=== PATIENT | male | born 1945 | race Caucasian/White ===

== ENCOUNTER 2020-10-22 09:28 | Emergency (ER) | payer OTHER ==
[2020-10-22 09:55] LABS: HEMOGLOBIN 10.6 gm/dl (14.0-17.5); RED BLOOD COUNT 3.1 M/UL (4.20-5.50); WHITE BLOOD COUNT 3.2 K/UL (4.5-11.0)
[2020-10-22 10:21] LABS: BUN/CREATININE RATIO 15 (0-10)
== END 2020-10-22 13:35 | disposition other institution (70) ==
LOC: ER1 09:28
PROVIDERS: Physician Assistant
DX: I61.9 Nontraumatic intracerebral hemorrhage, unspecified (principal); I10 Essential (primary) hypertension; Z20.822 Contact with and (suspected) exposure to COVID-19; Z90.49 Acquired absence of other specified parts of digestive tract; Z79.899 Other long term (current) drug therapy
CPT/HCPCS: 36430; 70450; 70496; 71045; 80053; 82550; 82553; 83874; 84484; 85025; 85610; 86900; 86901; 93005; 96374; 96375; 99285; J2405; J7050; P9035; Q9967; U0002

== ENCOUNTER → 2020-12-08 | Outpatient (CLI) | payer OTHER | LOC: EMI 09:23 | DX: F43.23 Adjustment disorder with mixed anxiety and depressed mood (principal); K74.60 Unspecified cirrhosis of liver; R41.89 Other symptoms and signs involving cognitive functions and awareness; F03.90 Unspecified dementia, unspecified severity, without behavioral disturbance, psychotic disturbance, mood disturbance, and anxiety; R41.3 Other amnesia; G31.9 Degenerative disease of nervous system, unspecified | CPT/HCPCS: 70551 ==

== ENCOUNTER 2021-10-23 16:10 | Inpatient (IN) | payer OTHER ==
[~2021-10-23] VITALS: Ht 167.6 cm; Wt 79.4 kg
[2021-10-23 17:50] LABS: HEMOGLOBIN 8.5 gm/dl (14.0-17.5); RED BLOOD COUNT 2.54 M/UL (4.20-5.50); WHITE BLOOD COUNT 3.9 K/UL (4.5-11.0)
--- NOTE | 2021-10-23 17:51 | NUR ---
patient on heparin rate of 9.6 upon arrival from [facility].
[2021-10-23] MEDS ORDERED: ALLOPURINOL100 MG PO (18:05)
[2021-10-23] MEDS ORDERED: FERROUS SULFAT324 MG PO (18:05)
[2021-10-23] MEDS ORDERED: HYDRALAZINE HCL50 MG PO (18:06)
[2021-10-23] MEDS ORDERED: PROTONIX40 MG PO (18:06)
[2021-10-23] MEDS ORDERED: ACETAMINOPHEN325 MG PO (18:07)
[2021-10-23] MEDS ORDERED: SENNA PLUS 8.61 EACH PO (18:08)
[2021-10-23] MEDS ORDERED: LEVOTHYROXINE25 MCG PO (18:08)
--- NOTE | 2021-10-23 18:08 | NUR ---
reported all labs to dr tubbs and she acknowledged.
[2021-10-23] MEDS ORDERED: NADOLOL20 MG PO (18:09)
[2021-10-23] MEDS ORDERED: METHOCARBAMOL500 MG PO (18:09)
[2021-10-23] MEDS ORDERED: DONEPEZIL HCL10 MG PO (18:10)
[2021-10-23] MEDS ORDERED: FUROSEMIDE40 MG PO (18:10)
[2021-10-23] MEDS ORDERED: FLOMAX 0.4 MG0.4 MG PO (18:10)
[2021-10-23] MEDS ORDERED: NAMENDA10 MG PO (18:11)
[2021-10-23] MEDS ORDERED: LISINOPRIL20 MG PO (18:11)
[2021-10-23] MEDS ORDERED: POTASSIUM CHLO10 ME1 PO (18:12)
[2021-10-23] MEDS ORDERED: QUETIAPINE FUMA25 MG PO (18:19)
--- NOTE | 2021-10-23 18:21 | NUR ---
spoken to dr. vanegas and reported of increase lab values of troponin and gave a brief report about the patient and she acknowledged
--- NOTE | 2021-10-24 12:11 | NUR ---
lab not done on time d/t laboratory instrument down per director geophysical laboratory when called r/t heparin
[2021-10-25 09:38] LABS: HEMOGLOBIN 9.4 gm/dl (14.0-17.5); RED BLOOD COUNT 2.76 M/UL (4.20-5.50)
[2021-10-25 10:18] LABS: WHITE BLOOD COUNT 1.5 K/UL (4.5-11.0)
--- NOTE | 2021-10-25 14:53 | NUR ---
PATIENT HAS HAD TWO BOWEL MOVEMENTS TODAY. TECH REPORTED THE PATIENT HAD BLACK TARRY STOOL FOR THE LAST BOWEL MOVEMENT. PROVIDER [email or web address].
[2021-10-26 04:56] LABS: HEMOGLOBIN 8.2 gm/dl (14.0-17.5)
[2021-10-26 04:57] LABS: RED BLOOD COUNT 2.44 M/UL (4.20-5.50); WHITE BLOOD COUNT 2.3 K/UL (4.5-11.0)
[2021-10-27 09:48] LABS: HEMOGLOBIN 9.2 gm/dl (14.0-17.5); RED BLOOD COUNT 2.72 M/UL (4.20-5.50); WHITE BLOOD COUNT 3.4 K/UL (4.5-11.0)
[2021-10-27] MEDS ORDERED: BUDESONIDE0.5 MG/2 M NEB (18:43)
[2021-10-27] MEDS ORDERED: IPRAT-ALBUT 0.5-3 ML NEB ×2 (18:43→19:14)
[2021-10-27] MEDS ORDERED: AMLODIPINE BESY10 MG PO (18:51)
[2021-10-27] MEDS ORDERED: DECADRON6 MG PO (18:51)
[2021-10-27] MEDS ORDERED: DOXYCYCLINE HY100 M2 PO (18:58)
[2021-10-27] MEDS ORDERED: AMOX TR-K CLV1 EAC4 PO (18:58)
[2021-10-27] MEDS ORDERED: HYDRALAZINE HCL50 MG PO (19:12)
== END 2021-10-27 21:43 | disposition home health service (06) | DRG 177 ==
LOC: MED SURG 4 16:10
PROVIDERS: Internal Medicine; ADMIT Internal Medicine
PROC: B24BZZZ Ultrasonography of Heart with Aorta (ICD-10-PCS; 2021-10-24)
PROC: 8E0ZXY6 Isolation (ICD-10-PCS; principal; 2021-10-25)
PROC: XW033E5 Introduction of Remdesivir Anti-infective into Peripheral Vein, Percutaneous Approach, New Technology Group 5 (ICD-10-PCS; 2021-10-25)
PROC: 3E0333Z Introduction of Anti-inflammatory into Peripheral Vein, Percutaneous Approach (ICD-10-PCS; 2021-10-25)
DX: U07.1 COVID-19 (principal); I21.A1 Myocardial infarction type 2; J96.01 Acute respiratory failure with hypoxia; J12.82 Pneumonia due to coronavirus disease 2019; J15.9 Unspecified bacterial pneumonia; D61.818 Other pancytopenia; N17.9 Acute kidney failure, unspecified; I13.0 Hypertensive heart and chronic kidney disease with heart failure and stage 1 through stage 4 chronic kidney disease, or unspecified chronic kidney disease; I50.32 Chronic diastolic (congestive) heart failure; J44.0 Chronic obstructive pulmonary disease with (acute) lower respiratory infection; G93.40 Encephalopathy, unspecified; D69.6 Thrombocytopenia, unspecified; F03.90 Unspecified dementia, unspecified severity, without behavioral disturbance, psychotic disturbance, mood disturbance, and anxiety; N18.30 Chronic kidney disease, stage 3 unspecified; I16.0 Hypertensive urgency; I08.3 Combined rheumatic disorders of mitral, aortic and tricuspid valves; D63.1 Anemia in chronic kidney disease; R00.1 Bradycardia, unspecified; K74.60 Unspecified cirrhosis of liver; Z99.81 Dependence on supplemental oxygen; Z91.14 Patient's other noncompliance with medication regimen; Z80.42 Family history of malignant neoplasm of prostate
CPT/HCPCS: ECHO; 36415; 71045; 71046; 80048; 80053; 80061; 82550; 82553; 82607; 82746; 82962; 83036; 83605; 83735; 84439; 84443; 84484; 85027; 85730; 87040; 93005; 93306; 94640; 94664; 94760; 96374; 97162; 97167; 97530; G0378; G0379; J0248; J0360; J1100; J1644; J2185; J7030